=== PATIENT | male | born 1990 | race Hispanic/Latino ===

== ENCOUNTER 2019-11-08 10:57 | Inpatient (IN) | payer OTHER ==
[~2019-11-08] VITALS: Ht 172.7 cm; Wt 83.4 kg
[2019-11-08 11:13] LABS: BASOPHILS % (AUTO) 0.2 % (0.0-5.0); HEMATOCRIT 42.3 % (42-54); LYMPHOCYTES % (AUTO) 6.7 % (21.0-51.0); MEAN CORPUSCULAR HEMOGLOBIN 29.2 pg (27.0-33.0); MEAN CORPUSCULAR HGB CONC 34.5 g/dL (32.0-36.0); MEAN CORPUSCULAR VOLUME 84.6 fL (79-99); MONOCYTES % (AUTO) 4.7 % (3.0-13.0); NEUTROPHILS % (AUTO) 88.2 % (40.0-77.0); PLATELET COUNT (AUTO) 316 K/uL (130-400); RED CELL DISTRIBUTION WIDTH 12.6 % (11.0-15.5); WHITE BLOOD COUNT (AUTO) 12.2 K/uL (4.8-10.8)
[2019-11-08 11:24] LABS: POTASSIUM 3.1 mmol/L (3.5-5.1)
[2019-11-08 11:28] LABS: ALBUMIN 4.3 g/dL (3.5-5.0); BILIRUBIN,TOTAL 0.6 mg/dL (0.2-1.0); TOTAL PROTEIN, SERUM 8.5 g/dL (6.0-8.3)
[2019-11-08] MEDS ORDERED: MORPHINE SULFATE 2 MG/ML 1ML SYG ONE (11:38)
[2019-11-08] MEDS ORDERED: ONDANSETRON HCL 4 MG/2 ML VIAL ONE (13:41)
[2019-11-08] MEDS ORDERED: SODIUM CHLORIDE 0.9% 1000ML 1,000 ML IV ONE (14:54)
[2019-11-08] MEDS: LACTATED RINGERS 1000ML 1,000 ML IV SCH ×2 (16:54→22:17)
[2019-11-08] MEDS ORDERED: NITROGLYCERIN 0.4 MG SL TAB SL PRN (17:00)
[2019-11-08] MEDS ORDERED: ONDANSETRON HCL 4 MG/2 ML VIAL IV PRN (17:00)
[2019-11-08] MEDS ORDERED: LACTULOSE 20 GM/30 ML UDCUP PO PRN (17:00)
[2019-11-08] MEDS ORDERED: DIPHENHYDRAMINE HCL 25 MG CAPSULE PO PRN (17:00)
[2019-11-08] MEDS ORDERED: GUAIFENESIN-DM 200/20 MG 10 ML PO PRN (17:00)
[2019-11-08] MEDS ORDERED: ACETAMINOPHEN 325 MG TAB PO PRN ×2 (17:00)
[2019-11-08] MEDS ORDERED: DiphenhydrAMINE HCL 50 MG/ML VIAL IV PRN (17:00)
[2019-11-08] MEDS ORDERED: ACETAMINOPHEN-CODEINE 300/30MG TAB PO PRN (17:00)
[2019-11-08] MEDS ORDERED: HYDRALAZINE HCL 20 MG/ML VIAL IV PRN (17:00)
[2019-11-08] MEDS ORDERED: MAG HYDROX/AL HYDROX/SIMETH ES 30 ML SUSP UDCUP PO PRN (17:00)
[2019-11-08] MEDS ORDERED: LACTATED RINGERS 1000ML 1,000 ML IV ONE (18:36)
[2019-11-08] MEDS ORDERED: POTASSIUM CHLORIDE 10% ELIXIR 20 MEQ/15 ML UDCUP ONE (20:41)
[2019-11-08 21:00] VITALS: BP 111/73
[2019-11-08] MEDS ORDERED: MAGNESIUM 2GM PREMIX 50ML 50 ML IV SCH (21:00)
--- NOTE | 2019-11-08 22:17 | NUR ---
PATIENT RECEIVED FROM ER, REPORT Andie GAN RN. PT WITH C/O ABD PAIN, N/V SINCE THIS MORNING. STATES HE ATE [place] [employer] FROM [place]. DX ACUTE GASTROENTERITIS, SEVERE DEHYDRATION, N/V. PT ORIENTED TO ROOM AND ENVIRONMENT. CONT WITH EMESIS, ZOFRAN 4 MG IV ADMINISTERED PER PRN ORDERS. POC DISCUSSED, PENDING STOOL FOR PCR. WILL CONT TO MONITOR CLOSELY. ASSESSMENT HAS BEEN DOCUMENTED. PATIENT DENIES TRAVEL OR EXPOSURE TO COVID-19 RULE OR OR POSITIVE. Addendum: 11/08/19 at 2219 by LAURA GARCIA RN RN Amended: Links added.
[2019-11-09] VITALS (10 sets, daily range): BP systolic 100–131; BP diastolic 61–83
[2019-11-09] MEDS: LACTATED RINGERS 1000ML 1,000 ML IV SCH ×3 (01:42→16:30)
[2019-11-09 05:22] LABS: BASOPHILS % (AUTO) 0.1 % (0.0-5.0); EOSINOPHILS % (AUTO) 0.1 % (0.0-8.0); HEMATOCRIT 35.4 % (42-54); LYMPHOCYTES % (AUTO) 22.5 % (21.0-51.0); MEAN CORPUSCULAR HEMOGLOBIN 29.6 pg (27.0-33.0); MEAN CORPUSCULAR HGB CONC 34.7 g/dL (32.0-36.0); MEAN CORPUSCULAR VOLUME 85.3 fL (79-99); MONOCYTES % (AUTO) 10.5 % (3.0-13.0); NEUTROPHILS % (AUTO) 66.6 % (40.0-77.0); PLATELET COUNT (AUTO) 268 K/uL (130-400); RED BLOOD CELL COUNT(AUTO) 4.15 MIL/uL (4.50-6.20); WHITE BLOOD COUNT (AUTO) 9.5 K/uL (4.8-10.8)
[2019-11-09 05:49] LABS: ALBUMIN 3.5 g/dL (3.5-5.0); BILIRUBIN,TOTAL 0.6 mg/dL (0.2-1.0); CREATININE 0.7 mg/dL (0.5-1.5); TOTAL PROTEIN, SERUM 6.8 g/dL (6.0-8.3)
[2019-11-09 06:13] LABS: POTASSIUM 2.8 mmol/L (3.5-5.1)
[2019-11-09] MEDS ORDERED: LIDOCAINE HCL-MPF 1% 2ML VIAL IV PRN (06:30)
[2019-11-09] MEDS ORDERED: POTASSIUM CHLORIDE 10% ELIXIR 20 MEQ/15 ML UDCUP PO PRN (06:30)
[2019-11-09] MEDS ORDERED: POTASSIUM CHLORIDE 20MEQ/100ML 100 ML IV PRN (06:30)
[2019-11-09] MEDS: POTASSIUM CHLORIDE 20 MEQ ERTAB PO ONE ×2 (06:36→06:38)
[2019-11-09] MEDS: POTASSIUM CHLORIDE 20 MEQ ERTAB PO PRN (06:38)
[2019-11-09] MEDS ORDERED: POTASSIUM CHLORIDE 20 MEQ ERTAB PO SCH ×2 (07:30→17:00)
[2019-11-09] MEDS: ENOXAPARIN SODIUM 30 MG/0.3 ML SQ SCH (10:50)
[2019-11-09 12:23] LABS: HEMOGLOBIN A1C 7.1 % (4.0-6.0)
--- NOTE | 2019-11-09 13:27 | NUR ---
MET W PATIENT AT BEDSIDE FOR DC PLANNING. PATIENT LIVES WITH SEVERAL ROOMMATES- IS ACTIVE, INDEPENDENT, EMPLOYED, AT [employer] IN [place], NO DME OR HOME SERVICES; UNINSURED. PATIENT STATES GOES TO [facility] IN [place]. [facility] DISCHARGE. NO DC NEEDS ANTICIPATED.
[2019-11-09 16:24] LABS: MAGNESIUM 2.1 mg/dL (1.80-2.40); POTASSIUM 3.4 mmol/L (3.5-5.1)
[2019-11-10] VITALS (7 sets, daily range): BP systolic 112–126; BP diastolic 69–85
[2019-11-10 02:53] LABS: APPEARANCE,URINE Clear (CLEAR); BILIRUBIN,URINE Negative (NEGATIVE); COLOR,URINE Yellow (YELLOW); GLUCOSE, URINE (UA) Negative (NEGATIVE); KETONES,URINE Trace mg/dL (NEGATIVE); LEUKOCYTE ESTERASE ,URINE Negative (NEGATIVE); NITRATE,URINE Negative (NEGATIVE); OCCULT BLOOD,URINE Negative (NEGATIVE); PH,URINE 7.5 (5.0-8.0); PROTEIN,URINE Negative (NEGATIVE)
[2019-11-10 05:00] LABS: BASOPHILS % (AUTO) 0.3 % (0.0-5.0); EOSINOPHILS % (AUTO) 0.7 % (0.0-8.0); HEMATOCRIT 35.7 % (42-54); LYMPHOCYTES % (AUTO) 29.3 % (21.0-51.0); MEAN CORPUSCULAR HEMOGLOBIN 29.1 pg (27.0-33.0); MEAN CORPUSCULAR HGB CONC 33.3 g/dL (32.0-36.0); MEAN CORPUSCULAR VOLUME 87.3 fL (79-99); MONOCYTES % (AUTO) 9.3 % (3.0-13.0); NEUTROPHILS % (AUTO) 60.2 % (40.0-77.0); PLATELET COUNT (AUTO) 252 K/uL (130-400); RED BLOOD CELL COUNT(AUTO) 4.09 MIL/uL (4.50-6.20); RED CELL DISTRIBUTION WIDTH 13.2 % (11.0-15.5)
[2019-11-10 05:41] LABS: ALBUMIN 3.3 g/dL (3.5-5.0); BILIRUBIN,TOTAL 0.6 mg/dL (0.2-1.0); CREATININE 0.7 mg/dL (0.5-1.5); POTASSIUM 3.6 mmol/L (3.5-5.1); TOTAL PROTEIN, SERUM 6.7 g/dL (6.0-8.3)
[2019-11-10] MEDS: POTASSIUM CHLORIDE 20 MEQ ERTAB PO PRN (06:29)
[2019-11-10] MEDS ORDERED: KETOROLAC TROMETHAMINE 15MG/ML IV SCH (09:15)
[2019-11-10] MEDS: ENOXAPARIN SODIUM 30 MG/0.3 ML SQ SCH (09:19)
--- NOTE | 2019-11-10 13:24 | NUR ---
MET W PATIENT AT BEDSIDE FOR DC PLANNING. PATIENT LIVES WITH SEVERAL ROOMMATES- IS ACTIVE, INDEPENDENT, EMPLOYED, AT [employer] IN [place] [address], NO DME OR HOME SERVICES; UNINSURED. PATIENT STATES GOES TO [facility] IN [place] [address]. [facility]E [facility]SP[facility] AT DISCHARGE. NO DC NEEDS ANTICIPATED. Addendum: 11/10/19 at 1326 by PETRA GONZALEZ RN CM Amended: Links added.
--- NOTE | 2019-11-10 13:58 | NUR ---
TYLENOL 2 PO GIVEN NOW FOR C/O OF HEAD ACHE. HEAD CT W/O CONTRAST ORDERED, IF NEG. PT. TO BE DISCHARGED.
[2019-11-10] MEDS ORDERED: PANT40TA PO (16:49)
--- NOTE | 2019-11-10 18:35 | NUR ---
DISCHARGED NOW USING TEACH BACK.RX. FOR PROTONIX GIVEN AND INST TO FOLLOW UP WITH PCP IN 3 TO 5 DAYS.` SALINE LOCK XS 2 REMOVED.VERBALIZED UNDERSTANDING OF ALL INST. GIVEN.+ STATES IS FROM [place] BUT WORKING IN [place] AND DOES OT HAVE A DR. HERE BUT WILL GO TO A CLINIC.
[2020-02-08] MEDS ORDERED: METF-444 PO (13:03)
== END 2019-11-10 18:30 | disposition home or self-care (01) | DRG 392 ==
LOC: EDH 10:57 → EDHIP 10:58 → 3AH 19:48
PROVIDERS: ADMIT Family Medicine; ATTEND Family Medicine
DX: A09 Infectious gastroenteritis and colitis, unspecified (principal); E86.0 Dehydration; E87.6 Hypokalemia; E11.9 Type 2 diabetes mellitus without complications
CPT/HCPCS: 36415; 70450; 80053; 81003; 82150; 82948; 83036; 83690; 83735; 84132; 84145; 85025; G0378; J1650; J1885; J2405; J3475; J7030; J7120

== ENCOUNTER 2020-02-16 12:56 | Inpatient (IN) | payer OTHER ==
[~2020-02-16] VITALS: Ht 177.8 cm; Wt 80.5 kg
[~2020-02-16 12:56] MED LIST: METF-444 PO; PANT40TA PO
[2020-02-16] MEDS ORDERED: ONDANSETRON HCL 4 MG/2 ML VIAL ONE ×2 (13:22→17:13)
[2020-02-16 13:26] LABS: BASOPHILS % (AUTO) 0.3 % (0.0-5.0); EOSINOPHILS % (AUTO) 0.3 % (0.0-8.0); HEMATOCRIT 47.7 % (42-54); LYMPHOCYTES % (AUTO) 16.2 % (21.0-51.0); MEAN CORPUSCULAR HEMOGLOBIN 29.4 pg (27.0-33.0); MEAN CORPUSCULAR HGB CONC 34.2 g/dL (32.0-36.0); MEAN CORPUSCULAR VOLUME 85.9 fL (79-99); MONOCYTES % (AUTO) 7.2 % (3.0-13.0); NEUTROPHILS % (AUTO) 75.9 % (40.0-77.0); PLATELET COUNT (AUTO) 308 K/uL (130-400); RED BLOOD CELL COUNT(AUTO) 5.55 MIL/uL (4.50-6.20); RED CELL DISTRIBUTION WIDTH 12.7 % (11.0-15.5); WHITE BLOOD COUNT (AUTO) 7.9 K/uL (4.8-10.8)
[2020-02-16 13:28] LABS: APPEARANCE,URINE Clear (CLEAR); BILIRUBIN,URINE Moderate (NEGATIVE); COLOR,URINE Dark Yellow (YELLOW); GLUCOSE, URINE (UA) TRACE mg/dL (NEGATIVE); KETONES,URINE >=160 mg/dL (NEGATIVE); LEUKOCYTE ESTERASE ,URINE Trace (NEGATIVE); NITRATE,URINE Negative (NEGATIVE); OCCULT BLOOD,URINE Negative (NEGATIVE); PH,URINE 5.5 (5.0-8.0); PROTEIN,URINE POS 1+ mg/dL (NEGATIVE)
[2020-02-16 13:30] LABS: BACTERIA,URINE Rare /HPF (None Seen); MUCUS,URINE Few LPF (None Seen); RBC,URINE 0-1 /HPF (0-1); SQUAMOUS EPITHELIAL CELL,UR Rare /HPF (0-2); WBC,URINE 0-1 /HPF (0-1)
[2020-02-16] MEDS ORDERED: METOCLOPRAMIDE 10 MG/2 ML VIAL ONE (13:30)
[2020-02-16] MEDS ORDERED: FAMOTIDINE/PF 20 MG/2 ML VIAL IV ONE (13:31)
[2020-02-16] MEDS ORDERED: DiphenhydrAMINE HCL 50 MG/ML VIAL ONE (13:31)
[2020-02-16 13:52] LABS: ALBUMIN 4.2 g/dL (3.5-5.0); BILIRUBIN,TOTAL 1.1 mg/dL (0.2-1.0); POTASSIUM 3.5 mmol/L (3.5-5.1)
[2020-02-16 13:56] LABS: AMPHET/METH SCREEN,URINE NEGATIVE (NEGATIVE); BARBITURATE SCREEN, URINE NEGATIVE (NEGATIVE); BENZODIAZEPINES SCREEN,URINE NEGATIVE (NEGATIVE); CANNABINOID SCREEN,URINE POSITIVE (NEGATIVE); COCAINE SCREEN,URINE NEGATIVE (NEGATIVE); OPIATE SCREEN,URINE NEGATIVE (NEGATIVE); PHENCYCLIDINE SCREEN,URINE NEGATIVE (NEGATIVE)
[2020-02-16] MEDS ORDERED: KETOROLAC TROMETHAMINE 30MG/ML ONE (15:50)
[2020-02-16] MEDS ORDERED: PANTOPRAZOLE 40 MG/VIAL ONE (17:14)
[2020-02-16] MEDS ORDERED: ACETAMINOPHEN 325 MG TAB PO PRN (18:15)
[2020-02-16] MEDS ORDERED: ONDANSETRON HCL 4 MG/2 ML VIAL IV PRN (18:15)
[2020-02-16] MEDS ORDERED: LACTULOSE 20 GM/30 ML UDCUP PO PRN (18:15)
[2020-02-16 19:19] LABS: HEMOGLOBIN A1C 6.6 % (4.0-6.0)
[2020-02-16] MEDS ORDERED: PROMETHAZINE HCL 25 MG/ML 1ML AMPULE IM SCH (20:45)
[2020-02-16] MEDS ORDERED: CEFTRIAXONE SODIUM 1 GM IVP SCH (20:45)
[2020-02-16] MEDS ORDERED: LEVOFLOXACIN 500 MG/D5W 100 ML 100 ML ONE (20:59)
[2020-02-16] MEDS: FAMOTIDINE/PF 20 MG/2 ML VIAL IV SCH (21:00)
[2020-02-17 05:21] LABS: BASOPHILS % (AUTO) 0.3 % (0.0-5.0); EOSINOPHILS % (AUTO) 1.4 % (0.0-8.0); HEMATOCRIT 36.6 % (42-54); MEAN CORPUSCULAR HEMOGLOBIN 29.5 pg (27.0-33.0); MEAN CORPUSCULAR HGB CONC 33.9 g/dL (32.0-36.0); MEAN CORPUSCULAR VOLUME 87.1 fL (79-99); MONOCYTES % (AUTO) 9.3 % (3.0-13.0); NEUTROPHILS % (AUTO) 59.8 % (40.0-77.0); PLATELET COUNT (AUTO) 282 K/uL (130-400); RED CELL DISTRIBUTION WIDTH 12.9 % (11.0-15.5); WHITE BLOOD COUNT (AUTO) 6.7 K/uL (4.8-10.8)
[2020-02-17 06:06] LABS: ALBUMIN 3.2 g/dL (3.5-5.0); BILIRUBIN,TOTAL 0.8 mg/dL (0.2-1.0); CREATININE 0.8 mg/dL (0.5-1.5); POTASSIUM 3.4 mmol/L (3.5-5.1)
[2020-02-17] MEDS ORDERED: ENOXAPARIN SODIUM 30 MG/0.3 ML SQ ONE (08:31)
[2020-02-17] MEDS ORDERED: FAMOTIDINE/PF 20 MG/2 ML VIAL IV ONE ×2 (08:32→20:49)
[2020-02-17] MEDS: ENOXAPARIN SODIUM 30 MG/0.3 ML SQ SCH (09:00)
--- NOTE | 2020-02-17 11:00 | NUR ---
MET W PATIENT AT BEDSIDE FOR DC PLANNING FROM OUT OF TOWN- [place]- MOVED HER FOR A NEW JOB, ALL FAMILY THERE, WAS HERE RECENTLY AT [facility] FOR HEADACHE, NOW JUST HAS ABDOMINAL PAIN, STATES ACTIVE, INDP, LIVES ALONE, NO DME, DRIVES, EMPLOYED, HAS BEEN TO [facility] [place] AND WILL FOLLOW UP THERE FOR AFTERCARE AND RX. DCP TO HOME Addendum: 02/17/20 at 1937 by PETRA GONZALEZ RN CM Amended: Links added.
[2020-02-17] MEDS: SODIUM CHLORIDE 0.9% 1000ML 1,000 ML IV SCH ×2 (18:11→23:13)
[2020-02-17] MEDS ORDERED: ACETAMINOPHEN-CODEINE 300/30MG TAB ONE (19:46)
[2020-02-17] MEDS ORDERED: ONDANSETRON HCL 4 MG/2 ML VIAL ONE (19:46)
[2020-02-17] MEDS ORDERED: LEVOFLOXACIN 500 MG/D5W 100 ML 100 ML ONE (20:48)
[2020-02-17] MEDS: FAMOTIDINE/PF 20 MG/2 ML VIAL IV SCH (21:00)
[2020-02-17] MEDS: LEVOFLOXACIN 500 MG/D5W 100 ML 100 ML IV SCH (21:00)
[2020-02-17 22:42] VITALS: BP 124/77
[2020-02-17] MEDS: ONDANSETRON HCL 4 MG/2 ML VIAL IV PRN (22:57)
[2020-02-17] MEDS: POTASSIUM CHLORIDE 20MEQ/100ML 100 ML IV PRN (23:28)
[2020-02-17] MEDS: LIDOCAINE HCL-MPF 1% 2ML VIAL IV PRN (23:28)
--- NOTE | 2020-02-17 23:40 | NUR ---
PATIENT RECEIVED FROM ER,, REPORT FROM FRANDY WHITING. PT ARRIVED TO ROOM 308, DX INTRACTABLE N/V x 1 WEEK. NO BM SINCE 02-11-2020. PT IS TO BE NPO FOR PLANNED EGD WITH MAC WITH DR. KELLEY. PENDING EVALUATION WITH SURGICAL CONSULT FOR CHOLELITHIASIS. POC DISCUSSED WITH PATIENT. PATIENT WITH C/O RUQ PAIN. I PAGED ALFA GARNICA VIA ANSWERING SERVICE, NO CALL BACK. WILL CONT TO MONITOR PATIENT CLOSELY. CALL MORALES PLACED WITHIN REACH, INSTRUCTED NOT TO GET UP BY HIMSELF D/T GBW AND RISK FOR FALLS. PT CONT WITH VOMITING, ZOFRAN PRN ADMINISTERED. POTASSIUM TO BE REPLACED PER PRN ORDERS.
[2020-02-18] VITALS (19 sets, daily range): BP systolic 87–143; BP diastolic 43–88
--- NOTE | 2020-02-18 00:31 | NUR ---
CALL BACK FROM RONAL ESTEVEZ [employer]. NEW ORDER FOR TORADOL 15MG IVP Q 6 HR PRN PAIN.
[2020-02-18] MEDS: KETOROLAC TROMETHAMINE 15MG/ML IV PRN ×2 (01:14→12:35)
[2020-02-18] MEDS: SODIUM CHLORIDE 0.9% 1000ML 1,000 ML IV SCH ×2 (02:11→09:54)
[2020-02-18 03:48] LABS: BASOPHILS % (AUTO) 0.2 % (0.0-5.0); HEMATOCRIT 38.2 % (42-54); MEAN CORPUSCULAR HEMOGLOBIN 29.3 pg (27.0-33.0); MEAN CORPUSCULAR VOLUME 86.2 fL (79-99); MONOCYTES % (AUTO) 4.4 % (3.0-13.0); NEUTROPHILS % (AUTO) 83.2 % (40.0-77.0); PLATELET COUNT (AUTO) 317 K/uL (130-400); RED BLOOD CELL COUNT(AUTO) 4.43 MIL/uL (4.50-6.20); RED CELL DISTRIBUTION WIDTH 12.6 % (11.0-15.5); WHITE BLOOD COUNT (AUTO) 8.9 K/uL (4.8-10.8)
[2020-02-18 04:12] LABS: ALBUMIN 3.4 g/dL (3.5-5.0); BILIRUBIN,TOTAL 1.1 mg/dL (0.2-1.0); CREATININE 0.9 mg/dL (0.5-1.5); POTASSIUM 3.7 mmol/L (3.5-5.1); TOTAL PROTEIN, SERUM 7.4 g/dL (6.0-8.3)
[2020-02-18] MEDS: METFORMIN HCL 500 MG TABLET PO SCH ×2 (08:00→18:06)
[2020-02-18] MEDS: FAMOTIDINE/PF 20 MG/2 ML VIAL IV SCH (09:00)
[2020-02-18] MEDS: ENOXAPARIN SODIUM 30 MG/0.3 ML SQ SCH (09:00)
--- NOTE | 2020-02-18 09:30 | NUR ---
REPORT GIVEN TO NURSE RM 411 PATIENT GIVEN TO HENOK WILKES. PATIENT PICKED UP FOR EGD WITH MAC, INFORMED GI NURSE THAT PATIENT WILL BE TRANSFERRED TO ROOM 411 AFTER EGD PROCEDURE.
[2020-02-18] MEDS: ONDANSETRON HCL 4 MG/2 ML VIAL IV PRN ×2 (10:08→12:28)
[2020-02-18] MEDS ORDERED: PROPOFOL 10 MG/ML 20ML VIAL IV ONE (11:27)
[2020-02-18] MEDS ORDERED: BISACODYL 10 MG SUPP.RECT RC ONE ×2 (14:00→17:58)
[2020-02-18] MEDS: METOCLOPRAMIDE 10 MG/2 ML VIAL IVP SCH (18:06)
[2020-02-18] MEDS: LEVOFLOXACIN 500 MG/D5W 100 ML 100 ML IV SCH (20:13)
[2020-02-19 03:20] VITALS: BP 118/65
[2020-02-19 04:58] LABS: BASOPHILS % (AUTO) 0.1 % (0.0-5.0); HEMATOCRIT 35.4 % (42-54); LYMPHOCYTES % (AUTO) 29.1 % (21.0-51.0); MEAN CORPUSCULAR HEMOGLOBIN 28.9 pg (27.0-33.0); MEAN CORPUSCULAR HGB CONC 33.3 g/dL (32.0-36.0); MEAN CORPUSCULAR VOLUME 86.8 fL (79-99); MONOCYTES % (AUTO) 8.2 % (3.0-13.0); NEUTROPHILS % (AUTO) 61.3 % (40.0-77.0); PLATELET COUNT (AUTO) 272 K/uL (130-400); RED BLOOD CELL COUNT(AUTO) 4.08 MIL/uL (4.50-6.20); RED CELL DISTRIBUTION WIDTH 12.7 % (11.0-15.5); WHITE BLOOD COUNT (AUTO) 6.7 K/uL (4.8-10.8)
[2020-02-19 05:23] LABS: ALBUMIN 3.2 g/dL (3.5-5.0); CREATININE 0.7 mg/dL (0.5-1.5); POTASSIUM 3.2 mmol/L (3.5-5.1); TOTAL PROTEIN, SERUM 6.7 g/dL (6.0-8.3)
[2020-02-19] MEDS: LIDOCAINE HCL-MPF 1% 2ML VIAL IV PRN (05:32)
[2020-02-19] MEDS: POTASSIUM CHLORIDE 20MEQ/100ML 100 ML IV PRN ×2 (05:32→13:15)
--- NOTE | 2020-02-19 06:14 | NUR ---
PATIENT REMAINED STABLE THROUGHOUT THE NIGHT. NO COMPLAINTS OF PAIN AND NO FEVERS. POTASSIUM WAS 3.2 THIS MORNING. POTASSIUM PROTOCOL INITIATED WITH 1ST BAG HANGING. PATIENT TOLERATING WELL WILL CONTINUE TO MONITOR. Addendum: 02/19/20 at 0619 by ANABELLA GONGORA RN RN Amended: Links added.
[2020-02-19 07:00] VITALS: BP 128/78
[2020-02-19] MEDS ORDERED: MAGNESIUM 2GM PREMIX 50ML 50 ML IV SCH (08:45)
[2020-02-19] MEDS: METOCLOPRAMIDE 10 MG/2 ML VIAL IVP SCH ×3 (08:55→17:33)
[2020-02-19] MEDS: PANTOPRAZOLE 40 MG/VIAL IVP SCH (08:55)
[2020-02-19] MEDS: ENOXAPARIN SODIUM 30 MG/0.3 ML SQ SCH (08:58)
[2020-02-19] MEDS: METFORMIN HCL 500 MG TABLET PO SCH ×2 (09:00→17:33)
[2020-02-19 11:00] VITALS: BP 128/70
--- NOTE | 2020-02-19 11:44 | NUR ---
CM NOTE MET WITH PATIENT IN ROOM. PER PATIENT, IS A NEW DIABETIC. SHOWED HIM RX FOR GLUCOMETER WITH STRIPS RX THAT WILL BE GIVEN TO HIM ON DISCHARGE. PATIENT MADE AWARE OF [facility]ARM[facility]Y DIABETIC KIT AND PRICING, VERBALIZED UNDERSTANDING. DR. PADILLA MADE AWARE OF NEED FOR RX FOR GLUCOMETER, RX FLAGGED IN CHART FOR MD SIGNATURE. PRIMARY NURSE, ISAIAH WHITING, AWARE.
--- NOTE | 2020-02-19 15:40 | NUR ---
RD NOTE PT WAS VISITED 02/18/20 HOWEVER PT WAS SLEEPING. PT WAS GIVEN EDUCATION 02/19/20. PER PT HE STATED BEING DX WITH T2DM 6 YEARS AGO AND RECEIVED NO NUTRITIONAL EDUCATION. PT ADMITS NOT TAKING CARE OF HIS EATING HABITS AND NOT CHECKING HIS BLOOD SUGARS DUE TO LACK OF EQUIPMENT (GLUCOSE METER). PT WAS ENCOURAGED TO CHECK THEM PREPRANDIAL AND 2HRS POST MEAL AND TO TALK TO HIS DOCTOR ABOUT WHAT RANGES WOULD BE BEST FOR HIM. PT WAS ASKED TO SHARE WHAT KNOWLEDGE HE HAS ON DM AND NUTRITION. PT STATED TO DRINKING COKES AND EATING FAST FOOD FOR LUNCH. EDUCATIONAL HANDOUTS WERE GIVEN ALONG WITH A 15 MIN EDUCATION. PT WAS ENCOURAGED TO CONTACT RD FOR FURTHER QUESTIONS. Addendum: 02/19/20 at [address] Amended: Links added.
[2020-02-19 15:50] VITALS: BP 121/69
--- NOTE | 2020-02-19 16:53 | NUR ---
RD NOTIFICATION PT DX WAS INTRACTABLE NAUSEA/VOMITING/ABDOMINAL PAIN/DEHYDRATION. PT HAS NO WT RECORDED ON MEDICAL RECORD. PER PT HIS WT IS OF 175 LBS. ASSESSMENT IS BASED ON WT PT PROVIDED. PT'S BMI IS OF 25. PT IS CURRENTLY ON A CLD DIET, PT STATED HIS APPETITE IS GOOD AND IS EATING ADEQUATELY. WHEN MEDICALLY APPROPRIATE TO ADVANCE CONSIDER A 75 GM CARB CONTROLLED DIET. LAST BOWEL MOVEMENT RECORDED WAS 02/11/20. RD WILL CONTINUE TO MONITOR PO INTAKE AND LAB VALUES PER PROTOCOL. Addendum: 02/19/20 at [address] Amended: Links added.
[2020-02-19] MEDS: KETOROLAC TROMETHAMINE 15MG/ML IV PRN (17:37)
[2020-02-19] MEDS: LEVOFLOXACIN 500 MG/D5W 100 ML 100 ML IV SCH (19:52)
[2020-02-19] MEDS: ACETAMINOPHEN-CODEINE 300/30MG TAB PO PRN (19:53)
[2020-02-19 20:00] VITALS: BP 123/71
[2020-02-20] VITALS (7 sets, daily range): BP systolic 92–128; BP diastolic 59–77
[2020-02-20 05:42] LABS: BASOPHILS % (AUTO) 0.1 % (0.0-5.0); HEMATOCRIT 40.3 % (42-54); LYMPHOCYTES % (AUTO) 22.3 % (21.0-51.0); MEAN CORPUSCULAR HEMOGLOBIN 28.8 pg (27.0-33.0); MEAN CORPUSCULAR HGB CONC 33.5 g/dL (32.0-36.0); MEAN CORPUSCULAR VOLUME 86.1 fL (79-99); MONOCYTES % (AUTO) 9.1 % (3.0-13.0); NEUTROPHILS % (AUTO) 67.2 % (40.0-77.0); PLATELET COUNT (AUTO) 310 K/uL (130-400); RED BLOOD CELL COUNT(AUTO) 4.68 MIL/uL (4.50-6.20); RED CELL DISTRIBUTION WIDTH 12.8 % (11.0-15.5); WHITE BLOOD COUNT (AUTO) 6.8 K/uL (4.8-10.8)
[2020-02-20 05:57] LABS: CREATININE 0.8 mg/dL (0.5-1.5); MAGNESIUM 1.9 mg/dL (1.80-2.40); POTASSIUM 3.7 mmol/L (3.5-5.1)
[2020-02-20] MEDS: METOCLOPRAMIDE 10 MG/2 ML VIAL IVP SCH ×3 (08:53→17:42)
[2020-02-20] MEDS: PANTOPRAZOLE 40 MG/VIAL IVP SCH (08:53)
[2020-02-20] MEDS: METFORMIN HCL 500 MG TABLET PO SCH (08:53)
[2020-02-20] MEDS: ENOXAPARIN SODIUM 30 MG/0.3 ML SQ SCH (08:54)
[2020-02-20] MEDS: ACETAMINOPHEN-CODEINE 300/30MG TAB PO PRN ×2 (08:54→21:11)
[2020-02-20] MEDS ORDERED: GLUCAGON 1MG KIT 1 MG ML IM PRN (12:30)
[2020-02-20] MEDS ORDERED: DEXTROSE 50%-WATER 50 ML DISP.SYRIN IV PRN (12:30)
[2020-02-20] MEDS ORDERED: DEXTROSE 5 % AND 0.9 % NACL 1,000 ML IV ONE (16:13)
[2020-02-20] MEDS: DEXTROSE 5 % AND 0.9 % NACL 1,000 ML IV SCH (16:15)
[2020-02-20] MEDS ORDERED: SINCALIDE 5 MCG ML VIAL IV ONE (20:06)
[2020-02-20] MEDS: LEVOFLOXACIN 500 MG/D5W 100 ML 100 ML IV SCH (21:09)
[2020-02-20] MEDS: ONDANSETRON HCL 4 MG/2 ML VIAL IV PRN (21:55)
[2020-02-20] MEDS ORDERED: PROMETHAZINE HCL 25 MG/ML 1ML AMPULE IM ONE (22:30)
[2020-02-21 03:00] VITALS: BP 117/76
[2020-02-21] MEDS: DEXTROSE 5 % AND 0.9 % NACL 1,000 ML IV SCH ×2 (05:38→20:38)
[2020-02-21 06:12] LABS: CREATININE 0.9 mg/dL (0.5-1.5); MAGNESIUM 1.7 mg/dL (1.80-2.40); POTASSIUM 3.6 mmol/L (3.5-5.1)
[2020-02-21 08:00] VITALS: BP 100/56
[2020-02-21] MEDS: METOCLOPRAMIDE 10 MG/2 ML VIAL IVP SCH ×3 (08:13→17:18)
[2020-02-21] MEDS: PANTOPRAZOLE 40 MG/VIAL IVP SCH (08:13)
[2020-02-21] MEDS: ACETAMINOPHEN-CODEINE 300/30MG TAB PO PRN (08:13)
[2020-02-21] MEDS: ENOXAPARIN SODIUM 30 MG/0.3 ML SQ SCH (08:13)
[2020-02-21 11:46] VITALS: BP 114/68
[2020-02-21] MEDS: ONDANSETRON HCL 4 MG/2 ML VIAL IV PRN (14:55)
[2020-02-21] MEDS: KETOROLAC TROMETHAMINE 15MG/ML IV PRN ×2 (14:59→20:36)
[2020-02-21 16:00] VITALS: BP 118/74
[2020-02-21 20:00] VITALS: BP 106/69
[2020-02-21] MEDS: LEVOFLOXACIN 500 MG/D5W 100 ML 100 ML IV SCH (20:38)
[2020-02-21 23:48] VITALS: BP 122/62
[2020-02-22] VITALS (24 sets, daily range): BP systolic 119–137; BP diastolic 68–92
[2020-02-22 06:55] LABS: CREATININE 0.9 mg/dL (0.5-1.5); MAGNESIUM 1.8 mg/dL (1.80-2.40); POTASSIUM 3.3 mmol/L (3.5-5.1)
[2020-02-22] MEDS ORDERED: LACTATED RINGERS 1000ML 0 ML IV ONE (07:52)
[2020-02-22] MEDS: METOCLOPRAMIDE 10 MG/2 ML VIAL IVP SCH ×3 (08:18→16:46)
[2020-02-22] MEDS: DEXTROSE 5 % AND 0.9 % NACL 1,000 ML IV SCH (08:19)
[2020-02-22] MEDS: POTASSIUM CHLORIDE 20MEQ/100ML 100 ML IV PRN (08:19)
[2020-02-22] MEDS: LIDOCAINE HCL-MPF 1% 2ML VIAL IV PRN (08:19)
[2020-02-22] MEDS: ENOXAPARIN SODIUM 30 MG/0.3 ML SQ SCH ×2 (08:20→08:43)
[2020-02-22] MEDS: PANTOPRAZOLE 40 MG/VIAL IVP SCH (08:40)
--- NOTE | 2020-02-22 11:28 | NUR ---
TO O.R. VIA BED.
[2020-02-22] MEDS ORDERED: BUPIVACAINE/PF 0.5% 10ML VIAL ONE (14:13)
[2020-02-22] MEDS ORDERED: LIDOCAINE PF 2% 5ML ABBOJECT ONE (14:14)
[2020-02-22] MEDS ORDERED: SUCCINYLCHOLINE 200MG/10ML SYR ONE (14:14)
[2020-02-22] MEDS ORDERED: DEXAMETHASONE SOD PHOSPHATE 10MG/ML 1ML VIAL ONE (14:14)
[2020-02-22] MEDS ORDERED: MIDAZOLAM HCL 1 MG/ML 2ML VIAL ONE (14:14)
[2020-02-22] MEDS ORDERED: ROCURONIUM 10MG/1ML SYR 10 MG/ML ML ONE (14:15)
[2020-02-22] MEDS ORDERED: ONDANSETRON HCL 4 MG/2 ML VIAL ONE (14:15)
[2020-02-22] MEDS ORDERED: FENTANYL CITRATE PF 50 MCG/1 ML 2ML VIAL ONE ×2 (14:15→15:02)
[2020-02-22] MEDS ORDERED: PROPOFOL 10 MG/ML 20ML VIAL IV ONE (14:15)
[2020-02-22] MEDS ORDERED: NEOSTIGMINE 5MG/5ML SYR IV ONE (14:15)
[2020-02-22] MEDS ORDERED: GLYCOPYRROLATE 1 MG/5 ML SYRINGE ONE (14:15)
[2020-02-22] MEDS ORDERED: MEPERIDINE-PF 25 MG/ML SYG ONE ×3 (14:19→16:03)
[2020-02-22] MEDS ORDERED: KETOROLAC TROMETHAMINE 30MG/ML ONE (15:32)
--- NOTE | 2020-02-22 16:32 | NUR ---
RETURNED TO ROOM VIA BED ACCOMPANIED BY. Michelle LOYD RN. PT. DROWSY BUT AROUSABLE. DENIES ANY C/O N/V. DENIES ANY CURRENT PAIN. ABD WITH BAND-AIDS IN PLACE X4, D/I. COMPLETE ASSESSMENT DONE. CALL LIGHT WITHIN REACH. BED LOW, SIDE RAILS UP X4.
[2020-02-22] MEDS: LACTATED RINGERS 1000ML 1,000 ML IV SCH (16:54)
[2020-02-22] MEDS: KETOROLAC TROMETHAMINE 15MG/ML IV PRN (19:41)
[2020-02-22] MEDS: LEVOFLOXACIN 500 MG/D5W 100 ML 100 ML IV SCH (19:41)
[2020-02-22] MEDS: ACETAMINOPHEN-CODEINE 300/30MG TAB PO PRN (22:57)
[2020-02-22] MEDS: ONDANSETRON HCL 4 MG/2 ML VIAL IV PRN (22:58)
[2020-02-23 03:11] VITALS: BP 122/74
[2020-02-23] MEDS: LACTATED RINGERS 1000ML 1,000 ML IV SCH ×2 (03:34→13:18)
[2020-02-23 04:37] LABS: BASOPHILS % (AUTO) 0.1 % (0.0-5.0); HEMATOCRIT 39.2 % (42-54); LYMPHOCYTES % (AUTO) 9.7 % (21.0-51.0); MEAN CORPUSCULAR HEMOGLOBIN 28.7 pg (27.0-33.0); MEAN CORPUSCULAR HGB CONC 33.7 g/dL (32.0-36.0); MEAN CORPUSCULAR VOLUME 85.2 fL (79-99); MONOCYTES % (AUTO) 6.1 % (3.0-13.0); NEUTROPHILS % (AUTO) 83.7 % (40.0-77.0); PLATELET COUNT (AUTO) 320 K/uL (130-400); RED CELL DISTRIBUTION WIDTH 12.6 % (11.0-15.5); WHITE BLOOD COUNT (AUTO) 9.4 K/uL (4.8-10.8)
[2020-02-23 04:53] LABS: ALBUMIN 3.4 g/dL (3.5-5.0); BILIRUBIN,TOTAL 0.7 mg/dL (0.2-1.0); CREATININE 0.6 mg/dL (0.5-1.5); POTASSIUM 3.4 mmol/L (3.5-5.1); TOTAL PROTEIN, SERUM 7.3 g/dL (6.0-8.3)
[2020-02-23] MEDS: ACETAMINOPHEN-CODEINE 300/30MG TAB PO PRN ×2 (05:14→17:31)
[2020-02-23 07:52] VITALS: BP 121/75
[2020-02-23] MEDS: METOCLOPRAMIDE 10 MG/2 ML VIAL IVP SCH ×2 (08:01→10:54)
[2020-02-23] MEDS: ENOXAPARIN SODIUM 30 MG/0.3 ML SQ SCH (08:02)
[2020-02-23] MEDS: PANTOPRAZOLE 40 MG/VIAL IVP SCH (09:39)
[2020-02-23 11:27] VITALS: BP 124/85
[2020-02-23 16:24] VITALS: BP 131/75
[2020-02-23] MEDS ORDERED: POTASSIUM CHLORIDE 20 MEQ ERTAB PO PRN (18:15)
[2020-02-23] MEDS ORDERED: POTASSIUM CHLORIDE 10% ELIXIR 20 MEQ/15 ML UDCUP PO PRN (18:15)
[2020-02-23 19:04] VITALS: BP 127/69
[2020-02-23] MEDS: LEVOFLOXACIN 500 MG/D5W 100 ML 100 ML IV SCH (19:35)
[2020-02-23 22:55] VITALS: BP 119/75
[2020-02-24 03:16] VITALS: BP 125/79
[2020-02-24 08:00] VITALS: BP_SYST 132; BP_SYST 135; BP_DIAS 75; BP_DIAS 87
[2020-02-24] MEDS: ENOXAPARIN SODIUM 30 MG/0.3 ML SQ SCH (08:56)
[2020-02-24] MEDS: PANTOPRAZOLE 40 MG/VIAL IVP SCH (08:56)
--- NOTE | 2020-02-24 09:55 | NUR ---
RD UPDATE PT IS 2 DAYS POST LAPAROSCOPIC CHOLECYSTECTOMY. PT IS CURRENTLY ON A FLD AND TOLERATING. PER PT HE IS CONSUMING 50-75% OF HIS MEALS. PT STATED HAVING MILD ABDOMINAL PAIN AND A MILD BURN AFTER EATING. RECENT LAB VALUES: HGB 13.2, HCT 39.2, K 3.4, BUN 5, CREAT 0.6, BG 98, ALB 3.5, CA 8.4. LAST BOWEL MOVEMENT PER PT WAS 02/24/20. RD RECOMMENDATION: ADVANCE DIET TOLERATED AND MEDICALLY APPROPRIATE. PT WILL NEED A LOW FAT DIET EDUCATION DUE TO RECENT PROCEDURE. Addendum: 02/24/20 at [address] Amended: Links added.
[2020-02-24 12:48] VITALS: BP 135/75
--- NOTE | 2020-02-24 16:35 | NUR ---
DISCHARGE INSTRUCTION PROVIDED TO PATIENT , INCLUDING APPT FOR FOLLOW UP WITH DR ROMERO .
== END 2020-02-24 16:20 | disposition home or self-care (01) | DRG 419 ==
LOC: EDH 12:56 → EDHIP 18:11 → 3BH 02-17 21:20 → 4BH 02-18 11:53
PROVIDERS: ADMIT Internal Medicine; ATTEND Internal Medicine
PROC: 0DB68ZX Excision of Stomach, Via Natural or Artificial Opening Endoscopic, Diagnostic (ICD-10-PCS; 2020-02-18)
PROC: 0FT44ZZ Resection of Gallbladder, Percutaneous Endoscopic Approach (ICD-10-PCS; principal; 2020-02-22 14:30)
DX: K82.8 Other specified diseases of gallbladder (principal); K29.70 Gastritis, unspecified, without bleeding; E11.9 Type 2 diabetes mellitus without complications; E86.0 Dehydration; F12.10 Cannabis abuse, uncomplicated; E66.9 Obesity, unspecified; Z20.828 Contact with and (suspected) exposure to other viral communicable diseases; E87.6 Hypokalemia; Z79.84 Long term (current) use of oral hypoglycemic drugs; Z82.5 Family history of asthma and other chronic lower respiratory diseases; Z68.25 Body mass index [BMI] 25.0-25.9, adult
CPT/HCPCS: 36415; 43239; 74176; 76705; 78227; 80048; 80053; 80305; 81001; 82948; 83036; 83690; 83735; 85025; 87426; A4606; A9537; C9113; G0378; J0330; J1100; J1200; J1650; J1885; J1956; J2001; J2175; J2250; J2405; J2704; J2710; J2765; J2805; J3010; J3475; J3480; J3490; J7030; J7042; J7070; J7120; U0003